=== PATIENT | male | born 1960 | race Caucasian/White ===

== ENCOUNTER 2018-02-07 12:55 | Outpatient (CLI) | payer SELFPAY ==
[2018-02-07 15:53] LABS: TSH 6.12 uIU/mL (0.358-3.74)
[2018-02-07 16:20] LABS: FREE T4 0.67 ng/dL (0.76-1.46)
[2018-02-07 22:29] LABS: T3,Free 3.2 pg/ml (2.8-5.3)
[2018-02-08 09:21] LABS: PSA, Diagnostic 0.9 ng/ml (0-3.5)
[2018-02-08 10:58] LABS: Thyroglobulin Antibody 363 U/mL (<61)
== END 2018-02-07 13:15 ==
PROVIDERS: PCP Emergency Medicine; Visit Provider Naturopath
DX: R53.83 Other fatigue (principal); I10 Essential (primary) hypertension; E03.9 Hypothyroidism, unspecified; E66.9 Obesity, unspecified
CPT/HCPCS: 36415; 84153; 84439; 84443; 84481; 86800

== ENCOUNTER 2018-03-13 12:06 | Outpatient (CLI) | payer OTHER, SELFPAY ==
[2018-03-13 14:55] LABS: FREE T4 0.73 ng/dL (0.76-1.46); TSH 3.07 uIU/mL (0.358-3.74)
[2018-03-13 22:35] LABS: T3,Free 4.6 pg/ml (2.8-5.3)
== END 2018-03-13 12:26 ==
PROVIDERS: PCP Emergency Medicine; Visit Provider Naturopath
DX: E03.9 Hypothyroidism, unspecified (principal)
CPT/HCPCS: 36415; 84439; 84443; 84481